=== PATIENT | male | born 1995 | race Caucasian/White ===

== ENCOUNTER 2023-11-27 11:16 | Emergency (ER) | payer MEDICAID ==
[~2023-11-27] VITALS: Ht 185.4 cm; Wt 108.0 kg
[2023-11-27] MEDS: HYDROcodone/acetaminophen 10/325mg tab PO ONE (12:28)
[2023-11-27] MEDS ORDERED: IBUP-1986 PO (12:40)
[2023-11-27 13:17] VITALS: BP 136/81; PULSE 75; RESP 17; TEMP 98.6; O2SAT 96
== END 2023-11-27 13:18 | disposition home or self-care (01) ==
LOC: ER 11:17
DX: H60.92 Unspecified otitis externa, left ear (principal)
CPT/HCPCS: 99283